=== PATIENT | male | born 2000 | race Caucasian/White ===

== ENCOUNTER 2022-06-01 08:00 | Outpatient (CLI) | payer OTHER ==
[2022-06-01 17:48] LABS: BASOPHILS % (AUTO) 0.4 %; HCT - HEMATOCRIT 45.2 % (42.0-52.0); HGB - HEMOGLOBIN 15.7 g/dL (14.0-18.0); LYMPHOCYTES % (AUTO) 7.7 %; MEAN CORPUSCULAR HEMOGLOBIN 32.2 pg (27.0-31.0); MEAN CORPUSCULAR HGB CONC 34.7 g/dL (32.0-36.0); MEAN CORPUSCULAR VOLUME 92.6 fL (80.0-94.0); MEAN PLATELET VOLUME 10.4 fL (7.4-11.4); MONOCYTES % (AUTO) 14.4 %; NEUTROPHILS % (AUTO) 76.1 %; PLT - PLATELET COUNT 211 10^3/uL (130-450); RED BLOOD COUNT 4.88 10^6/uL (4.70-6.10); RED CELL DISTRIBUTION WIDTH 11.9 % (12.0-15.0); WHITE BLOOD COUNT 11.4 x10^3/uL (4.8-10.8)
[2022-06-01 17:54] LABS: ABNORMAL LYMPHS % (MANUAL) 0 %; BAND NEUTROPHILS % (MANUAL) 0 %
[2022-06-01 17:55] LABS: INFECTIOUS MONONUCLEOSIS NEGATIVE (Negative)
[2022-06-01 18:22] LABS: EOSINOPHILS # (MANUAL) 0.1 10^3/uL (0-0.7); LYMPHOCYTES % (MANUAL) 9 %; MONOCYTES # (MANUAL) 1.4 10^3/uL (0.0-1.0); NEUTROPHILS # (MANUAL) 8.9 10^3/uL (1.5-6.6)
[2022-06-01 18:23] LABS: DIFFERENTIAL COMMENT MANUAL DIFFERENTIAL; PLATELET ESTIMATE, MANUAL NORMAL (130-450,000) (NORMAL); PLATELET MORPHOLOGY NORMAL APPEARANCE (NORMAL); RBC MORPHOLOGY (MULTIPLE) NORMAL APPEARANCE (NORMAL); WBC MORPHOLOGY (MULTIPLE) NORMAL APPEARANCE (NORMAL)
== END 2022-06-01 23:59 | disposition home or self-care (01) ==
LOC: LAB.N 08:00
PROVIDERS: ATTEND Family Medicine
DX: R07.0 Pain in throat (principal)
CPT/HCPCS: 36415; 85025; 86308

== ENCOUNTER 2022-08-15 10:45 | Outpatient (CLI) | payer OTHER ==
--- NOTE | 2022-08-16 14:39 | XRAY Report ---
PROCEDURE: Elbow 3 View RT INDICATIONS: R ELBOW PX TECHNIQUE: 3 views of the elbow were acquired. COMPARISON: None FINDINGS: Bones: There is a comminuted radial head fracture with mild displacement. No suspicious bony lesions . Soft tissues: Moderate to large elbow joint effusion. No suspicious soft tissue calcifications. IMPRESSION: Radial head fracture with moderate to large elbow effusion. Reviewed by: Parker Llanes MD on 08/16/2022 2:38 PM PDT Approved by: Parker Llanes MD on 08/16/2022 2:38 PM PDT Station ID: [id number]
== END 2022-08-15 10:46 | disposition home or self-care (01) ==
LOC: DI.N 10:45
PROVIDERS: ATTEND Nurse Practitioner
DX: S52.121A Displaced fracture of head of right radius, initial encounter for closed fracture (principal); M25.421 Effusion, right elbow

== ENCOUNTER 2022-08-18 08:00 | Outpatient (CLI) | payer MEDICAID, OTHER ==
--- NOTE | 2022-08-18 14:28 | XRAY Report ---
PROCEDURE: Elbow 3 View RT INDICATIONS: RIGHT ELBOW FRACTURE TECHNIQUE: 3 views of the elbow were acquired (6 images total). COMPARISON: Right elbow radiographs 08/15/2022 FINDINGS: Bones: Comminuted intra-articular fracture of the radial head is again demonstrated with mild displac ement, not significantly changed when compared to the radiographs from 08/15/2022. Mildly displaced c oronoid process fracture also does not appear significant changed. No suspicious bony lesions. Soft tissues: Moderate to large elbow joint effusion. No suspicious soft tissue calcifications. Non specific soft tissue edema is seen surrounding the elbow. IMPRESSION: Mildly displaced comminuted intra-articular fracture of the radial head and mildly displaced coronoid process fracture do not appear significant changed in alignment. Moderate to large joint effusion. Reviewed by: Alireza Rodriguez MD on 08/18/2022 2:27 PM PDT Approved by: Alireza Rodriguez MD on 08/18/2022 2:27 PM PDT Station ID: [id number]
== END 2022-08-18 23:59 | disposition home or self-care (01) ==
LOC: DI.WOS 08:00
PROVIDERS: ATTEND Orthopaedic Surgery
DX: S52.121A Displaced fracture of head of right radius, initial encounter for closed fracture (principal); S52.041A Displaced fracture of coronoid process of right ulna, initial encounter for closed fracture